=== PATIENT | female | born 1960 | race Caucasian/White ===

== ENCOUNTER 2017-04-08 22:08 | Inpatient (IN) | payer OTHER ==
[~2017-04-08] VITALS: Ht 162.6 cm; Wt 56.3 kg
[~2017-04-08 22:08] MED LIST: AUGM12TA2 PO
[2017-04-08 22:13] VITALS: BP 151/74; PULSE 83; RESP 16; TEMP 98.3; O2SAT 97
[2017-04-08 22:22] VITALS: O2SAT 98
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
[2017-04-08] MEDS ORDERED: TETANUS/DIPHTHERIA TOXOID ADULT 0.5 ML VIAL IM ONE (22:30)
[2017-04-08] MEDS ORDERED: SODIUM CHLORIDE 0.9% FLUSH 10 ML FLUSH IVF PRN (22:30)
[2017-04-08] MEDS ORDERED: LIDOCAINE 1%/EPINEPHrine 1:100,000 SOLN 20 ML VIAL INFIL ONE (22:30)
[2017-04-08 22:35] LABS: BASOPHIL # 0.1 TH/MM3 (0-0.2); BASOPHIL % 0.7 % (0.0-2.0); EOSINOPHIL # 0.3 TH/MM3 (0-0.4); EOSINOPHIL % 1.6 % (0.0-4.0); HEMATOCRIT 37.9 % (35.0-46.0); HEMO FLAGS DIFF FINAL; LYMPH % 28.8 % (9.0-44.0); MEAN CELL VOLUME 96.3 FL (80.0-100.0); MEAN CORPUSCULAR HGB CONC 34.2 % (32.0-36.0); MONO % 4.6 % (0.0-8.0); NEUT % 64.3 % (16.0-70.0); PLATELET COUNT 315 TH/MM3 (150-450); RED BLOOD COUNT 3.94 MIL/MM3 (4.00-5.30); RED CELL DISTRIBUTION WIDTH 13.1 % (11.6-17.2); WHITE BLOOD COUNT 17.2 TH/MM3 (4.0-11.0)
[2017-04-08 22:51] LABS: APTT (PATIENT) 23.3 SEC (24.3-30.1); INTERNATIONAL NORMALIZED RATIO 0.9 RATIO; PROTHROMBIN TIME - PATIENT 9.9 SEC (9.8-11.6)
[2017-04-08 22:54] LABS: ANION GAP 12 MEQ/L (5-15)
[2017-04-08 23:01] LABS: ALKALINE PHOSPHATASE 64 U/L (45-117); ALT (GPT) 28 U/L (10-53); AST (GOT) 38 U/L (15-37); BICARBONATE 23.2 MEQ/L (21.0-32.0); BLOOD UREA NITROGEN 15 MG/DL (7-18); CHLORIDE 105 MEQ/L (98-107); GLOMERULAR FILTRATION RATE 77 ML/MIN (>89); SODIUM (NA) 140 MEQ/L (136-145); TOTAL BILIRUBIN ADULT 0.4 MG/DL (0.2-1.0)
[2017-04-08 23:03] LABS: POTASSIUM 2.9 MEQ/L (3.5-5.1)
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
[2017-04-08] MEDS ORDERED: ONDANSETRON HCL 4 MG/2 ML VIAL IV ONE (23:30)
[2017-04-09] VITALS (15 sets, daily range): BP systolic 115–181; BP diastolic 55–82; PULSE 54–75; RESP 16–29; TEMP 96.8–98.6; O2SAT 90–99
[2017-04-09] MEDS ORDERED: MIDAZOLAM HCL 2 MG/2 ML VIAL IV PUSH ONE
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
[2017-04-09] MEDS ORDERED: IOHEXOL 350 MG/ML 100 ML BTL (for RAD DIAG) IV ONE (00:38)
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
--- NOTE | 2017-04-09 01:50 | PD ---
Physical Exam Date Seen by Provider: Apr 09, 2017 Time Seen by Provider: 01:48 Narrative Full history and physical examination please see previous provider's note. I was asked to repair the lacerations to the posterior scalp and the right lower leg. Data Data Last Documented VS Vital Signs Date Time Temp Pulse Resp B/P Pulse Ox O2 Delivery O2 Flow Rate FiO2 04/09/17 00:34 75 18 139/67 96 Room Air 04/08/17 22:13 98.3 Orders Complete Blood Count With Diff (04/08/17 22:17) Prothrombin Time / Inr (Pt) (04/08/17 22:17) Act Partial Throm Time (Ptt) (04/08/17 22:17) Alcohol (Ethanol) (04/08/17 22:17) Ct Brain W/O Iv Contrast(Rout) (04/08/17 22:17) Ct Cerv Spine W/O Contrast (04/08/17 22:17) Ct Abd/Pel W Iv Contrast(Rout) (04/08/17 22:17) Ct Thorax/ Chest W Iv Contrast (04/08/17 22:17) Ct Facial Bones W/O Iv Cont (04/08/17 22:17) Iv Access Insert/Monitor (04/08/17 22:17) Ecg Monitoring (04/08/17 22:17) Oximetry (04/08/17 22:17) Sodium Chloride 0.9% Flush (Ns Flush) (04/08/17 22:30) Comprehensive Metabolic Panel (04/08/17 22:17) Tetanus/Diphtheria Tox Adult (Tetanus/Di (04/08/17 22:30) Lidocai-Epi 1%-1:100,000 Inj (Xylocaine- (04/08/17 22:30) Tibia/Fibula (Ap/Lat) (04/08/17 22:17) Chest, Single Ap (04/08/17 ) Pelvis, Ap Only (Routine) (04/08/17 ) Ondansetron Inj (Zofran Inj) (04/08/17 23:30) Midazolam Inj (Versed Inj) (04/09/17 00:00) Iohexol 350 Inj (Omnipaque 350 Inj) (04/09/17 00:38) Admit Order (Ed Use Only) (04/09/17 01:40) Labs Laboratory Tests Test 04/08/17 22:22 White Blood Count 17.2 TH/MM3 Red Blood Count 3.94 MIL/MM3 Hemoglobin 13.0 GM/DL Hematocrit 37.9 % Mean Corpuscular Volume 96.3 FL Mean Corpuscular Hemoglobin 33.0 PG Mean Corpuscular Hemoglobin 34.2 % Concent Red Cell Distribution Width 13.1 % Platelet Count 315 TH/MM3 Mean Platelet Volume 8.0 FL Neutrophils (%) (Auto) 64.3 % Lymphocytes (%) (Auto) 28.8 % Monocytes (%) (Auto) 4.6 % Eosinophils (%) (Auto) 1.6 % Basophils (%) (Auto) 0.7 % Neutrophils # (Auto) 11.0 TH/MM3 Lymphocytes # (Auto) 5.0 TH/MM3 Monocytes # (Auto) 0.8 TH/MM3 Eosinophils # (Auto) 0.3 TH/MM3 Basophils # (Auto) 0.1 TH/MM3 CBC Comment DIFF FINAL Differential Comment Prothrombin Time 9.9 SEC Prothromb Time International 0.9 RATIO Ratio Activated Partial 23.3 SEC Thromboplast Time Sodium Level 140 MEQ/L Potassium Level 2.9 MEQ/L Chloride Level 105 MEQ/L Carbon Dioxide Level 23.2 MEQ/L Anion Gap 12 MEQ/L Blood Urea Nitrogen 15 MG/DL Creatinine 0.78 MG/DL Estimat Glomerular Filtration 77 ML/MIN Rate Random Glucose 132 MG/DL Calcium Level 8.4 MG/DL Total Bilirubin 0.4 MG/DL Aspartate Amino Transf 38 U/L (AST/SGOT) Alanine Aminotransferase 28 U/L (ALT/SGPT) Alkaline Phosphatase 64 U/L Total Protein 6.3 GM/DL Albumin 3.4 GM/DL Ethyl Alcohol Level 97 MG/DL [facility] Supervised Visit with KESHA: Yes Procedures Procedure Narrative LACERATION LOCATION: Lower leg LENGTH: 3 centimeters and 1 cm NUMBER OF STITCHES/TEZ: 9 REPAIR: The area of the laceration was prepped with Betadine and sterilely draped. The laceration was infiltrated with 1% lidocaine. The wound was copiously irrigated and explored without evidence of foreign body, tendon injury or neurovascular injury. The wound was closed using 4-0 Ethilon. This was a 1 layer repair. A sterile dressing was applied. The patient was advised to keep the dressing clean and dry. Patient tolerated the procedure well. LACERATION LOCATION: Posterior scalp LENGTH: 1.5 centimeters NUMBER OF STITCHES/TEZ: 3 sutures Temp was made to close with tez however due to the nature of the injury stitches were used to approximate the wound. REPAIR: The area of the laceration was prepped with Betadine and sterilely draped. The laceration was infiltrated with A cane. The wound was copiously irrigated and explored without evidence of foreign body, tendon injury or neurovascular injury. The wound was closed using 4-0 Ethilon. This was a 1 layer repair. A sterile dressing was applied. The patient was advised to keep the dressing clean and dry. Patient tolerated the procedure well. Scripts No Active Prescriptions or Reported Meds Esperanza Medeiros Apr 09, 2017 01:50
[2017-04-09] MEDS ORDERED: MORPHINE SULFATE 8 MG/ML INJ ONE (02:35)
[2017-04-09] MEDS ORDERED: SODIUM CHLORIDE 0.9% FLUSH 10 ML FLUSH IVF PRN (02:45)
[2017-04-09] MEDS ORDERED: MORPHINE SULFATE 4 MG/ML INJ IV PUSH PRN (02:45)
[2017-04-09] MEDS ORDERED: MORPHINE SULFATE 4 MG/ML INJ IV PUSH ONE (02:45)
[2017-04-09] MEDS ORDERED: ONDANSETRON HCL 4 MG/2 ML VIAL IV ONE (02:45)
[2017-04-09] MEDS: ONDANSETRON HCL 4 MG/2 ML VIAL IV PRN ×3 (02:50→16:55)
[2017-04-09] MEDS: NS + KCL 40 MEQ INJ 1,000 ML IV SCH ×3 (03:06→20:51)
[2017-04-09] MEDS ORDERED: CHLORHEXIDINE GLUCONATE 2 % 1 PACK (2 CLOTHS) TOP PRN (08:30)
[2017-04-09] MEDS ORDERED: POTASSIUM CHLOR 20 MEQ PREMIX 100 ML IV PRN ×3 (08:30→08:45)
[2017-04-09] MEDS ORDERED: SODIUM PHOSPHATE INJ 30 MMOL in SODIUM CHLOR 0.9% 250 ML INJ 240 ML IV PRN (08:30)
[2017-04-09] MEDS ORDERED: POTASSIUM CHLOR 40 MEQ PREMIX 100 ML IV PRN ×2 (08:30)
[2017-04-09] MEDS ORDERED: SODIUM CHLORIDE 0.9% FLUSH 10 ML FLUSH IV FLUSH PRN ×2 (08:30→08:45)
[2017-04-09] MEDS ORDERED: MAGNESIUM SULFATE INJ 2 GM in SODIUM CHLORIDE 0.9% INJ 96 ML IV PRN (08:30)
[2017-04-09] MEDS ORDERED: MAGNESIUM SULFATE INJ 4 GM in SODIUM CHLORIDE 0.9% INJ 92 ML IV PRN (08:30)
[2017-04-09] MEDS ORDERED: POTASSIUM PHOSPHATE MONOBASIC 500 MG TAB PO PRN (08:30)
[2017-04-09] MEDS ORDERED: ACETAMINOPHEN 325 MG TAB PO PRN ×2 (08:30→08:45)
[2017-04-09] MEDS ORDERED: POTASSIUM CHLORIDE 25 MEQ EFFERVESCENT TAB PO PRN (08:30)
[2017-04-09] MEDS ORDERED: POTASSIUM PHOSPHATE INJ 30 MMOL in SODIUM CHLOR 0.9% 250 ML INJ 250 ML IV PRN (08:30)
[2017-04-09] MEDS ORDERED: ENALAPRILAT 1.25 MG/ML VIAL IV PRN (08:30)
[2017-04-09] MEDS ORDERED: MISCELLANEOUS NURSING INFORMATION XX SCH (08:30)
[2017-04-09] MEDS ORDERED: ONDANSETRON HCL 4 MG/2 ML VIAL IV PRN (08:30)
[2017-04-09] MEDS ORDERED: POTASSIUM PHOSPHATE MONOBASIC 500 MG TAB PO/TUBE PRN (08:30)
[2017-04-09] MEDS ORDERED: MAGNESIUM OXIDE 400 MG TAB PO PRN (08:30)
[2017-04-09] MEDS ORDERED: MAGNESIUM SULFATE INJ 2 GM in SODIUM CHLORIDE 0.9% INJ 100 ML IV PRN (08:45)
[2017-04-09] MEDS ORDERED: ALUMINUM/MAGNESIUM/SIMETH 30 ML CUP PO PRN (08:45)
[2017-04-09] MEDS ORDERED: LABETALOL HCL 100 MG/20 ML VIAL IV PRN (08:45)
[2017-04-09] MEDS ORDERED: LORazepam 2 MG/ML VIAL IVP PRN (08:45)
[2017-04-09] MEDS ORDERED: MAGNESIUM HYDROXIDE SUSP 30 ML CUP PO PRN (08:45)
[2017-04-09] MEDS ORDERED: CALCIUM GLUCONATE INJ 1 GM in SODIUM CHLORIDE 0.9% INJ 100 ML IV PRN (08:45)
[2017-04-09] MEDS ORDERED: cloNIDine HCL 0.1 MG TAB PO PRN (08:45)
[2017-04-09] MEDS ORDERED: PANTOPRAZOLE SOD 40 MG DELAYED RELEASE TAB PO SCH (09:00)
[2017-04-09] MEDS ORDERED: SODIUM CHLORIDE 0.9% FLUSH 10 ML FLUSH IV FLUSH SCH (09:00)
[2017-04-09] MEDS ORDERED: DOCUSATE SODIUM 100 MG CAP PO SCH (09:00)
[2017-04-09] MEDS ORDERED: PANTOPRAZOLE SODIUM 40 MG VIAL IVP SCH (09:00)
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
[2017-04-09] MEDS ORDERED: cloNIDine HCL 0.2 MG/24 HR PATCH T-DERMAL SCH (10:00)
[2017-04-09] MEDS: DOCUSATE SODIUM 100 MG CAP PO SCH ×2 (10:15→20:51)
[2017-04-09] MEDS: ACETAMINOPHEN/HYDROcodone 325 MG/10 MG TAB PO PRN ×3 (10:16→20:57)
[2017-04-09] MEDS: levETIRAcetam 500 MG TAB PO SCH ×2 (10:16→20:51)
[2017-04-09] MEDS: BACITRACIN TOP OINT 15 GM TUBE TOP SCH ×2 (10:23→20:52)
[2017-04-09] MEDS: SODIUM CHLORIDE 0.9% FLUSH 10 ML FLUSH IV FLUSH SCH ×2 (10:23→20:51)
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
[2017-04-09] MEDS: PANTOPRAZOLE SODIUM 40 MG VIAL IV PUSH SCH (10:32)
[2017-04-09 13:39] LABS: BICARBONATE 24.7 MEQ/L (21.0-32.0)
--- NOTE | 2017-04-09 13:48 | EKG ---
Date Performed: 04/09/2017 Time Performed: 11:16:54 PTAGE: 56 years EKG: SINUS BRADYCARDIA WITH SINUS ARRHYTHMIA POSSIBLE RIGHT VENTRICULAR CONDUCTION DELAY BORDERL INE ECG NO PREVIOUS TRACING DOCTOR: Alondra Guzman Interpretating Date/Time 04/09/2017 13:43:34
[2017-04-09] MEDS: MAGNESIUM HYDROXIDE SUSP 30 ML CUP PO SCH (20:52)
[2017-04-10] VITALS (10 sets, daily range): BP systolic 112–167; BP diastolic 60–80; PULSE 51–75; RESP 17–24; TEMP 95.8–98.4; O2SAT 97–100
[2017-04-10] MEDS ORDERED: CHLORHEXIDINE GLUCONATE 2 % 1 PACK (2 CLOTHS) TOP SCH (04:00)
[2017-04-10] MEDS: ONDANSETRON HCL 4 MG/2 ML VIAL IV PRN ×2 (04:56→20:49)
[2017-04-10] MEDS: ACETAMINOPHEN/HYDROcodone 325 MG/10 MG TAB PO PRN ×4 (04:56→20:49)
[2017-04-10] MEDS: NS + KCL 40 MEQ INJ 1,000 ML IV SCH ×2 (04:57→15:30)
--- NOTE | 2017-04-10 06:17 | RADRPT ---
EXAM DATE/TIME: 04/10/2017 03:56 [facility] COMPARISON: CHEST SINGLE AP, April 08, 2017, 22:52. INDICATIONS : Shortness of breath. MEDICAL HISTORY : None. SURGICAL HISTORY : None. ENCOUNTER: Subsequent ACUITY: 3 days PAIN SCORE: Non-responsive. LOCATION: chest FINDINGS: A single view of the chest demonstrates the lungs to be symmetrically aerated without evidence of mas s, infiltrate or effusion. The cardiomediastinal contours are unremarkable. Osseous structures are intact. CONCLUSION: No acute disease. Arya Moore MD on April 10, 2017 at 6:16 Board Certified Radiologist. This report was verified electronically.
--- NOTE | 2017-04-10 06:34 | RADRPT ---
EXAM DATE/TIME: 04/10/2017 04:45 [place] COMPARISON: CT BRAIN W/O CONTRAST, April 09, 2017, 0:13. INDICATIONS : Follow up parenchymal and subarachnoid hemorrhages. RADIATION DOSE: 36.66 CTDIvol (mGy) MEDICAL HISTORY : None SURGICAL HISTORY : None. ENCOUNTER: Subsequent ACUITY: 2 days PAIN SCALE: 0/10 LOCATION: cranial TECHNIQUE: Multiple contiguous axial images were obtained of the head. Using automated exposure control and adj ustment of the mA and/or kV according to patient size, radiation dose was kept as low as reasonably a chievable to obtain optimal diagnostic quality images. DICOM format image data is available electro nically for review and comparison. FINDINGS: CEREBRUM: Evolving left frontal contusion and minimal adjacent edema. There is some minimal residual subarachno id hemorrhage in the frontal lobes. Minimal hemorrhage is again seen along the falx. The ventricles a re normal for age. No evidence of midline shift, mass lesion, or acute infarction. POSTERIOR FOSSA: The cerebellum and brainstem are intact. The 4th ventricle is midline. The cerebellopontine angle i s unremarkable. EXTRACRANIAL: The visualized portion of the orbits is intact. SKULL: The calvaria is intact. No evidence of skull fracture. CONCLUSION: 1. Evolving left frontal contusion and minimal adjacent edema. 2. Decreasing subarachnoid hemorrhage in the frontal lobes. 3. Minimal hemorrhage again seen along the falx. Arya Moore MD on April 10, 2017 at 6:30 Board Certified Radiologist. This report was verified electronically.
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
[2017-04-10] MEDS: BACITRACIN TOP OINT 15 GM TUBE TOP SCH ×2 (09:00→21:00)
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
[2017-04-10] MEDS: levETIRAcetam 500 MG TAB PO SCH ×2 (10:31→20:49)
[2017-04-10] MEDS: PANTOPRAZOLE SODIUM 40 MG VIAL IV PUSH SCH (10:31)
[2017-04-10] MEDS: DOCUSATE SODIUM 100 MG CAP PO SCH ×2 (10:31→20:49)
[2017-04-10] MEDS: SODIUM CHLORIDE 0.9% FLUSH 10 ML FLUSH IV FLUSH SCH ×2 (10:32→20:48)
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
[2017-04-10 12:23] LABS: AUTOMATED NEUTROPHIL # 9.5 TH/MM3 (1.8-7.7); BASOPHIL % 0.4 % (0.0-2.0); EOSINOPHIL % 0.1 % (0.0-4.0); HEMATOCRIT 34.2 % (35.0-46.0); LYMPH % 11.9 % (9.0-44.0); LYMPHOCYTE # 1.4 TH/MM3 (1.0-4.8); MEAN CELL VOLUME 97.3 FL (80.0-100.0); MEAN CORPUSCULAR HGB CONC 34.9 % (32.0-36.0); MONO % 6.6 % (0.0-8.0); PLATELET COUNT 260 TH/MM3 (150-450); RED BLOOD COUNT 3.52 MIL/MM3 (4.00-5.30); RED CELL DISTRIBUTION WIDTH 13.3 % (11.6-17.2); WHITE BLOOD COUNT 11.7 TH/MM3 (4.0-11.0)
[2017-04-10] MEDS ORDERED: DOCU1CAP39 PO (12:23)
[2017-04-10] MEDS ORDERED: MAGN400S PO (12:23)
--- NOTE | 2017-04-10 12:27 | HHI.FF ---
Face to Face Verification Diagnosis: (1) Hypokalemia (2) Traumatic subarachnoid hemorrhage (3) Skull fracture with cerebral contusion (4) Mild neurocognitive disorder Physical Therapy Order: Evaluate and Treat, Improve ambulation, Strength and gait training Home Health Nursing Order: Medical education Signs/symptoms of disease process Medication education-adverse effect Nursing assessment with vital signs I have seen patient Monica Cardenas on 04/10/17. My clinical findings support the need for the requested home health care services because: Ltd mobility - disease progression Limited ability to care for self Impaired cognition/judgement High risk of falls I certify that my clinical findings support that this patient is homebound because: Post-op weakness Unsteady gait/balance Unsafe to leave home unassisted Carina Martinez Apr 10, 2017 12:27
[2017-04-10 12:28] LABS: HEMO FLAGS DIFF FINAL
[2017-04-10 13:12] LABS: ALKALINE PHOSPHATASE 46 U/L (45-117); ALT (GPT) 24 U/L (10-53); ANION GAP 4 MEQ/L (5-15); AST (GOT) 27 U/L (15-37); BICARBONATE 29.9 MEQ/L (21.0-32.0); BLOOD UREA NITROGEN 6 MG/DL (7-18); CHLORIDE 107 MEQ/L (98-107); GLOMERULAR FILTRATION RATE 108 ML/MIN (>89); POTASSIUM 4.9 MEQ/L (3.5-5.1); SODIUM (NA) 141 MEQ/L (136-145); TOTAL BILIRUBIN ADULT 0.5 MG/DL (0.2-1.0)
[2017-04-10] MEDS: MAGNESIUM HYDROXIDE SUSP 30 ML CUP PO SCH (20:48)
[2017-04-11] VITALS: BP 139/64; PULSE 54; RESP 18; TEMP 98; O2SAT 98
[2017-04-11] MEDS: NS + KCL 40 MEQ INJ 1,000 ML IV SCH ×2 (00:03→11:30)
[2017-04-11 04:00] VITALS: BP 140/65; PULSE 62; RESP 18; TEMP 97.3; O2SAT 95
[2017-04-11 07:44] LABS: AUTOMATED NEUTROPHIL # 8.2 TH/MM3 (1.8-7.7); BASOPHIL % 0.4 % (0.0-2.0); EOSINOPHIL % 0.1 % (0.0-4.0); HEMATOCRIT 34.8 % (35.0-46.0); HEMO FLAGS DIFF FINAL; LYMPH % 14.6 % (9.0-44.0); LYMPHOCYTE # 1.5 TH/MM3 (1.0-4.8); MEAN CELL VOLUME 96.4 FL (80.0-100.0); MEAN CORPUSCULAR HEMOGLOBIN 33.4 PG (27.0-34.0); MEAN CORPUSCULAR HGB CONC 34.7 % (32.0-36.0); MONO % 6.2 % (0.0-8.0); NEUT % 78.7 % (16.0-70.0); PLATELET COUNT 275 TH/MM3 (150-450); RED BLOOD COUNT 3.61 MIL/MM3 (4.00-5.30); RED CELL DISTRIBUTION WIDTH 12.9 % (11.6-17.2); WHITE BLOOD COUNT 10.4 TH/MM3 (4.0-11.0)
[2017-04-11 08:00] VITALS: BP 146/71; PULSE 58; RESP 16; TEMP 97.1; O2SAT 97
[2017-04-11 08:17] LABS: ALKALINE PHOSPHATASE 44 U/L (45-117); ALT (GPT) 16 U/L (10-53); ANION GAP 6 MEQ/L (5-15); AST (GOT) 15 U/L (15-37); BICARBONATE 30.3 MEQ/L (21.0-32.0); BLOOD UREA NITROGEN 10 MG/DL (7-18); CHLORIDE 106 MEQ/L (98-107); GLOMERULAR FILTRATION RATE 108 ML/MIN (>89); MAGNESIUM 2.4 MG/DL (1.5-2.5); POTASSIUM 4.1 MEQ/L (3.5-5.1); SODIUM (NA) 142 MEQ/L (136-145); TOTAL BILIRUBIN ADULT 0.3 MG/DL (0.2-1.0)
[2017-04-11] MEDS: SODIUM CHLORIDE 0.9% FLUSH 10 ML FLUSH IV FLUSH SCH (09:00)
[2017-04-11] MEDS: DOCUSATE SODIUM 100 MG CAP PO SCH (09:10)
[2017-04-11] MEDS: levETIRAcetam 500 MG TAB PO SCH (09:10)
[2017-04-11] MEDS: BACITRACIN TOP OINT 15 GM TUBE TOP SCH (09:10)
[2017-04-11] MEDS: ACETAMINOPHEN/HYDROcodone 325 MG/10 MG TAB PO PRN ×2 (09:10→15:15)
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
[2017-04-11] MEDS ORDERED: MECL12.574 PO (11:52)
[2017-04-11] MEDS ORDERED: HYDR-3583 PO (11:53)
[2017-04-11] MEDS ORDERED: MECLIZINE HCL 25 MG TAB PO PRN (12:00)
[2017-04-11 12:25] VITALS: BP 154/85; PULSE 76; RESP 16; TEMP 97.1; O2SAT 98
[2017-04-11] MEDS: PANTOPRAZOLE SODIUM 40 MG VIAL IV PUSH SCH (12:36)
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
[2017-04-11] MEDS: ONDANSETRON HCL 4 MG/2 ML VIAL IV PRN (15:15)
[2017-04-11 16:00] VITALS: BP 142/71; PULSE 75; RESP 17; TEMP 96.4; O2SAT 97
[2017-04-11 16:15] VITALS: RESP 16
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
[2017-04-16] MEDS ORDERED: [UNRECOGNIZED DRUG - OTHER] T-DERMAL SCH (09:00)
== END 2017-04-11 17:29 | disposition home health service (06) | DRG 84 ==
LOC: NEPC 22:08 → NEDA 04-09 01:42 → N03A 04-09 03:27 → N05B 04-10 11:54
PROVIDERS: ADMIT Surgery; ATTEND Surgery
PROC: 0HQ0XZZ Repair Scalp Skin, External Approach (ICD-10-PCS; principal; 2017-04-09)
PROC: 0HQKXZZ Repair Right Lower Leg Skin, External Approach (ICD-10-PCS; 2017-04-09)
DX: S06.6X9A Traumatic subarachnoid hemorrhage with loss of consciousness of unspecified duration, initial encounter (principal); I10 Essential (primary) hypertension; S01.01XA Laceration without foreign body of scalp, initial encounter; D72.829 Elevated white blood cell count, unspecified; S81.811A Laceration without foreign body, right lower leg, initial encounter; S01.511A Laceration without foreign body of lip, initial encounter; S01.512A Laceration without foreign body of oral cavity, initial encounter; S02.91XA Unspecified fracture of skull, initial encounter for closed fracture; S06.339A Contusion and laceration of cerebrum, unspecified, with loss of consciousness of unspecified duration, initial encounter; E87.6 Hypokalemia; M54.5 Low back pain; G89.29 Other chronic pain; R40.2414 Glasgow coma scale score 13-15, 24 hours or more after hospital admission; F10.129 Alcohol abuse with intoxication, unspecified; V23.4XXA Motorcycle driver injured in collision with car, pick-up truck or van in traffic accident, initial encounter; F17.210 Nicotine dependence, cigarettes, uncomplicated; Y90.4 Blood alcohol level of 80-99 mg/100 ml; Y92.410 Unspecified street and highway as the place of occurrence of the external cause
CPT/HCPCS: 12002; 70450; 70486; 71010; 71260; 72125; 72170; 73590; 74177; 80048; 80053; 80307; 83735; 85025; 85610; 85730; 87641; 90471; 90714; 93005; 96374; 96375; C9113; J2250; J2270; J2405; J3480; Q9967

== ENCOUNTER 2017-04-24 08:24 | Emergency (ER) | payer SELFPAY ==
[~2017-04-24] VITALS: Ht 162.6 cm; Wt 53.0 kg
[~2017-04-24 08:24] MED LIST changes: -AUGM12TA2 PO; +DOCU1CAP39 PO; +HYDR-3583 PO; +MAGN400S PO; +MECL12.574 PO
[2017-04-24 08:28] VITALS: BP 158/78; PULSE 76; RESP 20; TEMP 97.8; O2SAT 100
[2017-04-24] MEDS ORDERED: CEPH-460 PO (08:52)
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
== END 2017-04-24 09:12 | disposition home or self-care (01) ==
LOC: NEPK 08:24
DX: Z48.02 Encounter for removal of sutures (principal); S81.811D Laceration without foreign body, right lower leg, subsequent encounter; L08.9 Local infection of the skin and subcutaneous tissue, unspecified; J45.909 Unspecified asthma, uncomplicated; F17.200 Nicotine dependence, unspecified, uncomplicated; Z79.899 Other long term (current) drug therapy; X58.XXXD Exposure to other specified factors, subsequent encounter
CPT/HCPCS: 99283